=== PATIENT | female | born 1995 | race Caucasian/White ===

== ENCOUNTER → 2018-05-10 16:25 | Outpatient (CLI) | payer OTHER, SELFPAY ==
[2018-05-10 17:37] LABS: Add Manual Diff / Slide Review NO; Basophils Percent Auto 0.2 % (0-2); Eosinophils Percent Auto 0.5 % (2-4); Hematocrit 39.8 % (36-46); Hemoglobin 13.9 g/dL (12.0-16.0); Mean Corpuscular HGB Conc 34.9 % (30-36); Mean Corpuscular Volume 83.1 fL (80-100); Monocytes Percent Auto 5.2 % (3-14); Neutrophils Absolute Auto 8000 /uL (3000-5900); Neutrophils Percent Auto 71.1 % (50-75); Platelet Count 236 X10^3/uL (150-400); Red Blood Cell Count 4.79 X10^6/uL (4.0-5.2); Red Cell Distribution Width 13.6 % (11.6-14.8); White Blood Cell Count 11.3 X10^3/uL (4.5-11.0)
[2018-05-10 18:24] LABS: Appearance Urine UA CLEAR; Bilirubin Urine UA NEGATIVE (NEGATIVE); Color Urine UA YELLOW; Glucose Urine UA NEGATIVE (Normal); Ketones Urine UA NEGATIVE (NEGATIVE); Leukocyte Esterase Urine UA NEGATIVE (NEGATIVE); Nitrite Urine UA Negative (Negative); Occult Blood Urine UA NEGATIVE (Negative); Protein Urine UA TRACE (Negative); Specific Gravity Urine UA 1.025 (1.000-1.035); Urobilinogen Urine UA 0.2 E.U./dL (0.2)
[2018-05-10 19:56] LABS: HIV 1 and 2 Antibody NEGATIVE (NEGATIVE); Hep C Virus Ab w/Reflex Quant NEGATIVE s/c (NEGATIVE); Hepatitis B Surface Antigen NEGATIVE s/c (NEGATIVE); Rubella Antibody IgG 13.9 IU/mL (>15)
[2018-05-12 14:56] LABS: HSV 2 IGG AB < 0.90 index (< 0.90); HSV1IGG < 0.90 index (< 0.90)
[2018-05-12 15:08] LABS: Varicella IgG Antibody < 135.00 Index (< 135.00)
[2018-05-17 20:54] LABS: Urine Chlamydia NOT DETECTED; Urine N gonorrhoeae NOT DETECTED
[2018-05-18 20:30] LABS: Rapid Plasma Reagin NON-REACTIVE
== END ==
PROVIDERS: Visit Provider Specialist
DX: Z34.01 Encounter for supervision of normal first pregnancy, first trimester (principal); Z3A.01 Less than 8 weeks gestation of pregnancy
CPT/HCPCS: 36415; 80055; 81003; 86695; 86696; 86703; 86787; 86803; 86850; 86900; 86901; 87086; 87491; 87591

== ENCOUNTER → 2018-08-01 09:30 | Outpatient (CLI) | payer OTHER, SELFPAY ==
--- NOTE | 2018-08-01 09:30 | DI.US.S_ITS ---
PROCEDURE: US OB >= 14 WEEKS FETUS INDICATIONS: ANATOMY OUTSIDE/PRIOR DATING DATA: Last menstrual period (LMP): 03/15/18. LMP-based estimated date of delivery (SHANDRA): 12/20/18. First dating scan (date and location): 05/17/18. Estimated date of delivery (SHANDRA) from first dating scan: 12/22/18. TECHNIQUE: Real-time scanning was performed of the fetus, with image documentation and biometric measurements. Endovaginal scanning: No COMPARISON: [facility], , OB <= 14 WEEKS FETUS, 06/13/2018, 15:55. [facility], , OB >= 14 WEEKS FETUS, 05/25/2018, 15:53. FINDINGS: General: A single living intrauterine gestation is present. Presentation: Breech. Placenta: Placental position is anterior, without previa. Amniotic fluid index: 10.7 cm, normal range is 5-24 cm. heart rate: 141 beats per minute. Maternal cervical canal: 3.2 cm long. Normal lower limit is 2.5 cm. biometrics: Biparietal diameter: 19 weeks 5 days Head circumference: 19 weeks 4 days Abdominal circumference: 19 weeks 4 days Femur length: 18 weeks 5 days Estimated gestational age from initial scan: 19 weeks 4 days Composite gestational age from present scan: 19 weeks 3 days Estimated weight and percentile: 281 g; 27th percentile Measurement variability for biometric dating: +/- 7 days from 14 weeks to 15 weeks 6 days gestation, +/- 10 days from 16 weeks to 21 weeks 6 days gestation, +/- 2 weeks from 22 weeks to 27 weeks 6 days gestation, +/- 3 weeks for 28 weeks gestation or later. weight reference: 4500 g or EFW >90/95% is considered macrosomia or large for gestational age. EFW <10% is small for gestational age. EFW 5% or less is considered intra-uterine growth restriction. Anatomic survey: Neuro: Ventricles are non-dilated at less than 10 mm. Cisterna magna is normal at 3-11 mm. Cerebellum is normal in size and morphology. Nuchal skin fold: Normal at less than 6 mm between 14-21 weeks gestational age. Face: Nose and lips, facial profile are normal. Spine: No evidence for spina bifida. Heart: 4-chambered heart is present, with normal ventricular outflow tracts. Diaphragm: Diaphragm is intact. Stomach: Left-sided stomach is present. Kidneys: No hydronephrosis. Normal is less than 5 mm in 2nd trimester, less than 7 mm in 3rd trimester. Cord: 3-vessel cord has orthotopic insertion. Bladder: Normal in size. Extremities: All 4 extremities identified. IMPRESSION: 1. Single living IUP redemonstrated and interval growth is normal. 2. Normal anatomic survey. Dictated by: Sivakumar De Luna [facility] Interpreted: Lacy Anna MD on 08/01/2018 at 11:56 Approved by: Lacy Anna MD, PhD on 08/01/2018 at 14:51
== END ==
PROVIDERS: Visit Provider Family Medicine
DX: Z34.92 Encounter for supervision of normal pregnancy, unspecified, second trimester (principal); Z3A.19 19 weeks gestation of pregnancy
CPT/HCPCS: 76811

== ENCOUNTER → 2018-09-06 16:34 | Outpatient (CLI) | payer OTHER, SELFPAY ==
[2018-09-06 18:08] LABS: Hematocrit 34.3 % (36-46); Hemoglobin 11.6 g/dL (12.0-16.0)
[2018-09-06 18:30] LABS: GTT (PREG) 1 Hour PP 50gm Dose 142 mg/dL (76-139)
== END ==
PROVIDERS: PCP Physician Assistant Medical; Visit Provider Specialist
DX: Z34.92 Encounter for supervision of normal pregnancy, unspecified, second trimester (principal); Z3A.24 24 weeks gestation of pregnancy
CPT/HCPCS: 36415; 82950; 85014; 85018

== ENCOUNTER → 2018-09-20 07:47 | Outpatient (CLI) | payer OTHER, SELFPAY ==
[2018-09-20 08:48] LABS: Glucose Fasting Gestational 90 mg/dL (76-95)
[2018-09-20 09:50] LABS: Glucose 1 Hour Gest 149 mg/dL (76-180)
[2018-09-20 11:04] LABS: Glucose Tol Interp,Gestational INTERPRETATION
[2018-09-20 11:51] LABS: Glucose 2 Hour Gest 127 mg/dL (76-155)
[2018-09-20 12:12] LABS: Glucose 3 Hour Gest 134 mg/dL (76-140)
== END ==
PROVIDERS: PCP Physician Assistant Medical; Visit Provider Specialist
DX: O99.810 Abnormal glucose complicating pregnancy (principal); Z3A.26 26 weeks gestation of pregnancy
CPT/HCPCS: 36415; 82951; 82952

== ENCOUNTER 2018-11-12 11:32 | Outpatient (CLI) | payer OTHER, SELFPAY ==
[2018-11-12 12:46] LABS: Basophils Absolute Auto 0 /uL (0-100); Basophils Percent Auto 0.1 % (0-2); Eosinophils Absolute Auto 100 /uL (0-450); Eosinophils Percent Auto 0.8 % (2-4); Hematocrit 37.3 % (36-46); Hemoglobin 12.6 g/dL (12.0-16.0); Lymphocytes Absolute Auto 2100 /uL (1100-4500); Lymphocytes Percent Auto 22.9 % (25-40); Mean Corpuscular HGB Conc 33.7 % (30-36); Mean Corpuscular Hemoglobin 28.4 PG (26-34); Mean Corpuscular Volume 84.3 fL (80-100); Monocytes Absolute Auto 800 /uL (0-900); Monocytes Percent Auto 8.7 % (3-14); Neutrophils Absolute Auto 6100 /uL (1500-7000); Neutrophils Percent Auto 67.5 % (50-75); Platelet Count 221 X10^3/uL (150-400); Red Blood Cell Count 4.43 X10^6/uL (4.0-5.2); Red Cell Distribution Width 14.9 % (11.6-14.8)
[2018-11-12 12:47] LABS: Add Manual Diff / Slide Review SLIDE REVIEW
[2018-11-12 12:48] LABS: Appearance Urine UA SL CLOUDY; Bilirubin Urine UA NEGATIVE (NEGATIVE); Color Urine UA YELLOW; Glucose Urine UA NEGATIVE (Negative); Ketones Urine UA NEGATIVE (NEGATIVE); Leukocyte Esterase Urine UA 1+ (NEGATIVE); Nitrite Urine UA NEGATIVE (Negative); Occult Blood Urine UA NEGATIVE (Negative); Protein Urine UA NEGATIVE (Negative); RBC Urine None Seen (0-5/HPF); Urobilinogen Urine UA 0.2 E.U./dL (0.2)
[2018-11-12 12:54] LABS: Amorphous Sediment Urine 1+; Bacteria Urine Few (2-10); Culture Indicated Urine Specimen Cultured; Squamous Epithelial Cell Urine 1-5 /HPF; WBC Urine 5-10/HPF (0-5/HPF)
[2018-11-12 12:56] LABS: Alanine Aminotransferase 22 IU/L (9-52); Albumin 3.4 g/dL (3.5-5.0); Albumin Globulin Ratio 1.2 (1.0-2.8); Alkaline Phosphatase 153 U/L (38-126); Aspartate Aminotransferase 20 IU/L (14-36); Bilirubin Total 0.3 mg/dL (0.2-1.3); Bilirubin Unconjugated 0.2 mg/dL (0.0-1.1); Blood Urea Nitrogen 4 mg/dL (7-17); Calcium 10.5 mg/dL (8.4-10.2); Carbon Dioxide 27 mmol/L (22-32); Chloride 100 mmol/L (98-107); Estimated Glomerular Filt Rate > 60.0 mL/min (>60); Globulin 2.9 g/dL (1.7-4.1); Glucose 94 mg/dL (70-100); HEMOLYSIS < 15 (0-50); Potassium 3.9 mmol/L (3.4-5.1); Sodium 134 mmol/L (137-145); Total Protein 6.3 g/dL (6.3-8.2); Uric Acid 4.7 mg/dL (2.5-6.2)
[2018-11-12 13:09] LABS: RBC Morphology Normal Morphology
--- NOTE | 2018-11-12 13:25 | P.TNLD_ITS ---
Visit Information Visit Information Date of evaluation: 11/12/18 Primary OB Provider: Monica Almonte Reason for Evaluation: Yes non-stress test Comments/Additional reasons for admission: Patient complaining of decreased movement and a headache Vital Signs Vital Signs: Blood pressure 132/79, repeat 130/76, pulse 100, temperature 98.8? Review of Systems Review of Systems Patient complains of pain above her left eye. No nausea. No scotomata. No change in her edema although a little bit more swelling in her hands. Patient is concerned because she had not felt the baby move. No leakage of fluid. No contractions. All systems reviewed & are unremarkable except as noted in HPI and below Exam Vital Signs (past 8 hours): Blood pressure 132/79 pulse of 100, temperature 98.8? Narrative Exam Narrative: Abdomen is soft nontender. She has trace edema. DTRs are normal. Objective Labs Result Diagrams: 11/12/18 12:35 11/12/18 12:35 Labs: Laboratory Results - last 24 hr 11/12/18 11/12/18 11/12/18 12:26 12:35 12:35 WBC 9.0 RBC 4.43 Hgb 12.6 Hct 37.3 MCV 84.3 MCH 28.4 MCHC 33.7 RDW 14.9 H Plt Count 221 Neut % (Auto) 67.5 Lymph % (Auto) 22.9 L [place] % (Auto) 8.7 Eos % (Auto) 0.8 L Baso % (Auto) 0.1 Neut # (Auto) 6100 Lymph # (Auto) 2100 [place] # (Auto) 800 Eos # (Auto) 100 Baso # (Auto) 0 RBC Morphology Normal morphology Sodium 134 L Potassium 3.9 Chloride 100 Carbon Dioxide 27 BUN 4 L Creatinine 0.50 L Estimated GFR > 60.0 BUN/Creatinine Ratio 8.0 Glucose 94 Uric Acid 4.7 Calcium 10.5 H Total Bilirubin 0.3 Conjugated Bilirubin 0.0 Unconjugated Bilirubin 0.2 AST 20 ALT 22 Alkaline Phosphatase 153 H Total Protein 6.3 Albumin 3.4 L Globulin 2.9 Albumin/Globulin Ratio 1.2 Urine Color Yellow Urine Appearance Sl cloudy Urine pH 7.0 Ur Specific [place] 1.010 Urine Protein Negative Urine Glucose (UA) Negative Urine Ketones Negative Urine Occult Blood Negative Urine Nitrate Negative Urine Bilirubin Negative Urine Urobilinogen 0.2 Ur Leukocyte Esterase 1+ H Urine RBC None seen Urine WBC 5-10/hpf H Ur Squamous Epith Cells 1-5 /hpf Amorphous Sediment 1+ Urine Bacteria Few (2-10) H Ur Culture Indicated? Specimen cultured Evaluation Evaluation Baseline heart rate: 130 Variability: Moderate (11-25) monitor accelerations: Present monitor decelerations: Absent Contraction Frequency (minutes): 0 Category of Tracing: I Laboratory results: Laboratory Tests 11/12/18 11/12/18 11/12/18 12:26 12:35 12:35 WBC 9.0 RBC 4.43 Hgb 12.6 Hct 37.3 MCV 84.3 MCH 28.4 MCHC 33.7 RDW 14.9 H Plt Count 221 Neut % (Auto) 67.5 Lymph % (Auto) 22.9 L [place] % (Auto) 8.7 Eos % (Auto) 0.8 L Baso % (Auto) 0.1 Neut # (Auto) 6100 Lymph # (Auto) 2100 [place] # (Auto) 800 Eos # (Auto) 100 Baso # (Auto) 0 RBC Morphology Normal morphology Sodium 134 L Potassium 3.9 Chloride 100 Carbon Dioxide 27 BUN 4 L Creatinine 0.50 L Estimated GFR > 60.0 BUN/Creatinine Ratio 8.0 Glucose 94 Uric Acid 4.7 Calcium 10.5 H Total Bilirubin 0.3 Conjugated Bilirubin 0.0 Unconjugated Bilirubin 0.2 AST 20 ALT 22 Alkaline Phosphatase 153 H Total Protein 6.3 Albumin 3.4 L Globulin 2.9 Albumin/Globulin Ratio 1.2 Urine Color Yellow Urine Appearance Sl cloudy Urine pH 7.0 Ur Specific [place] 1.010 Urine Protein Negative Urine Glucose (UA) Negative Urine Ketones Negative Urine Occult Blood Negative Urine Nitrate Negative Urine Bilirubin Negative Urine Urobilinogen 0.2 Ur Leukocyte Esterase 1+ H Urine RBC None seen Urine WBC 5-10/hpf H Ur Squamous Epith Cells 1-5 /hpf Amorphous Sediment 1+ Urine Bacteria Few (2-10) H Ur Culture Indicated? Specimen cultured Diagnosis, Plan/Disposition Final Diagnosis (1) 34 weeks gestation of : Current Visit: Yes Status: Acute (2) Hypertension affecting in third trimester: Current Visit: Yes Status: Acute (3) Decreased movement: Current Visit: Yes Status: Acute Plan/Disposition Plan: [facility] labs were normal. Patient is now feeling the baby move. Patient has follow-up appointment scheduled. She is to call if there is any changes or worsening of her symptoms. OB Disposition: home
== END 2018-11-12 13:30 | disposition home or self-care (01) ==
LOC: LABOR 12:23 → OB 11-13 14:17
PROVIDERS: PCP Physician Assistant Medical; Visit Provider Specialist
DX: O36.8130 Decreased fetal movements, third trimester, not applicable or unspecified (principal); O16.3 Unspecified maternal hypertension, third trimester; R51 Headache; Z3A.34 34 weeks gestation of pregnancy
CPT/HCPCS: 36415; 59025; 80053; 80076; 81001; 84550; 85025; 87086; G0378; G0379

== ENCOUNTER → 2018-11-29 09:29 | Outpatient (CLI) | payer OTHER, SELFPAY ==
[2018-11-29 14:21] LABS: Strep Grp B PCR NEG for Grp B Strep
== END ==
PROVIDERS: PCP Physician Assistant Medical; Visit Provider Specialist
DX: Z34.03 Encounter for supervision of normal first pregnancy, third trimester (principal); Z3A.37 37 weeks gestation of pregnancy
CPT/HCPCS: 87653

== ENCOUNTER 2018-12-05 09:53 | Observation (INO) | payer OTHER, SELFPAY ==
[2018-12-05 10:40] LABS: Add Manual Diff / Slide Review NO; Basophils Absolute Auto 0 /uL (0-100); Basophils Percent Auto 0.2 % (0-2); Eosinophils Absolute Auto 100 /uL (0-450); Eosinophils Percent Auto 1.4 % (2-4); Hematocrit 35.6 % (36-46); Hemoglobin 12.4 g/dL (12.0-16.0); Lymphocytes Absolute Auto 1900 /uL (1100-4500); Lymphocytes Percent Auto 22.5 % (25-40); Mean Corpuscular HGB Conc 34.8 % (30-36); Mean Corpuscular Hemoglobin 28.7 PG (26-34); Mean Corpuscular Volume 82.6 fL (80-100); Monocytes Absolute Auto 700 /uL (0-900); Monocytes Percent Auto 8.3 % (3-14); Neutrophils Absolute Auto 5800 /uL (1500-7000); Neutrophils Percent Auto 67.6 % (50-75); Platelet Count 198 X10^3/uL (150-400); Red Blood Cell Count 4.31 X10^6/uL (4.0-5.2); Red Cell Distribution Width 14.3 % (11.6-14.8); White Blood Cell Count 8.6 X10^3/uL (4.5-11.0)
[2018-12-05 10:50] LABS: Aspartate Aminotransferase 20 IU/L (14-36); Blood Urea Nitrogen 4 mg/dL (7-17); Estimated Glomerular Filt Rate > 60.0 mL/min (>60); Uric Acid 6.1 mg/dL (2.5-6.2)
--- NOTE | 2018-12-05 12:18 | PM.OBTRLD ---
Visit Information Visit Information Date of evaluation: 12/05/18 Primary OB Provider: Monica Almonte Reason for Evaluation: Yes rule out labor Comments/Additional reasons for admission: Hypertension, edema, 1+ proteinuria, 37w6d first Vital Signs Vital Signs: Blood pressure of 138/82 followed by 112/ 92 Exam Narrative Exam Narrative: Fern test was negative for rupture of membranes. Patient with marked edema of abdomen and extremities. DTRs are normal. Ultrasound normal amniotic fluid with grade 3 changes of the placenta. Vertex spine right, baby looking left. Objective Labs Result Diagrams: 12/05/18 10:30 12/05/18 10:30 Labs: Laboratory Results - last 24 hr 12/05/18 12/05/18 10:30 10:30 WBC 8.6 RBC 4.31 Hgb 12.4 Hct 35.6 L MCV 82.6 MCH 28.7 MCHC 34.8 RDW 14.3 Plt Count 198 Neut % (Auto) 67.6 Lymph % (Auto) 22.5 L [place] % (Auto) 8.3 Eos % (Auto) 1.4 L Baso % (Auto) 0.2 Neut # (Auto) 5800 Lymph # (Auto) 1900 [place] # (Auto) 700 Eos # (Auto) 100 Baso # (Auto) 0 BUN 4 L Creatinine 0.40 L Estimated GFR > 60.0 BUN/Creatinine Ratio 10.0 Uric Acid 6.1 AST 20 Evaluation Evaluation Baseline heart rate: 130 Variability: Moderate (11-25) monitor accelerations: Present monitor decelerations: Absent Contraction Frequency (minutes): 0 Category of Tracing: I Cervical dilation (cm): 6 Cervical effacement (%): 100 station: -2 Laboratory results: Laboratory Tests 12/05/18 12/05/18 10:30 10:30 WBC 8.6 RBC 4.31 Hgb 12.4 Hct 35.6 L MCV 82.6 MCH 28.7 MCHC 34.8 RDW 14.3 Plt Count 198 Neut % (Auto) 67.6 Lymph % (Auto) 22.5 L [place] % (Auto) 8.3 Eos % (Auto) 1.4 L Baso % (Auto) 0.2 Neut # (Auto) 5800 Lymph # (Auto) 1900 [place] # (Auto) 700 Eos # (Auto) 100 Baso # (Auto) 0 BUN 4 L Creatinine 0.40 L Estimated GFR > 60.0 BUN/Creatinine Ratio 10.0 Uric Acid 6.1 AST 20 Diagnosis, Plan/Disposition Final Diagnosis (1) Hypertension affecting in third trimester: Current Visit: No Status: Acute Problem details: Patient will return tomorrow for AROM possible Pitocin induction if she does not return tonight in labor (2) 37 weeks gestation of : Current Visit: No Status: Acute
== END 2018-12-05 12:15 | disposition home or self-care (01) ==
PROVIDERS: Admitting Provider Specialist; PCP Physician Assistant Medical; Visit Provider Specialist
DX: O16.3 Unspecified maternal hypertension, third trimester (principal); Z3A.37 37 weeks gestation of pregnancy
CPT/HCPCS: 36415; 59025; 59050; 76815; 84450; 84550; 85025; G0378; G0379

== ENCOUNTER 2018-12-06 07:02 | Inpatient (IN) | payer OTHER, SELFPAY ==
--- NOTE | 2018-12-06 07:40 | PM.OBHP.1 ---
OB HPI Date/Time Date of admission: 12/06/18 Date Patient Seen: 12/06/18 Time Patient Seen: 07:40 History of Present Condition Chief complaint: OBS : 2 Para: 0 Estimated Date of Delivery: 12/20/18 Estimated Gestational Age (weeks): 38 Narrative: Abbey Hernandez is a 23 year old female at 38 weeks with gestational hypertension, advanced cervical dilation Indications Indication for induction OB: medical complication (mild preeclampsia) History of Present care: good care, initiated at week # (9), number of visits (13) and pounds weight gain (47) Dating criteria: LMP confirmed by 1st trimester US Ultrasounds: normal mid trimester US Obstetrical complications: preeclampsia Medical complications: none Preadmission Labs Blood type: O (+) positive -: Antibody screen: negative, GBS status: negative, HBsAG: negative, HIV: negative, HSV 1: negative, HSV 2: negative and RPR/VDLR: negative -: Chlamydia screen: not detected and Gonorrhea screen: not detected -: Rubella: not immune and Varicella: immune HCAB: negative 1 hr GTT: 142 3 hr GTT: 1 hr (149), 2 hr (127) and 3 hr (134) Fasting blood glucose: 90 Evaluation Evaluation Baseline heart rate: 125 Variability: Moderate (11-25) monitor accelerations: Present monitor decelerations: Absent Contraction Frequency (minutes): 0 Cervical dilation (cm): 6 Cervical effacement (%): 95 station: -2 [facility] Medical History (Updated 12/06/18 @ 07:46 by Monica Almonte MD) PCOS (polycystic ovarian syndrome) (Acute) Migraines (Chronic) Depression (Inactive) Social History Smoking Status: Never smoker Social History Smoking Status: Never smoker Meds Home Medications Medication Instructions Recorded Confirmed Type inulin 2 gram chewable tablet 2 gram PO DAILY tab 05/10/18 12/06/18 History lactobacillus combination no.8 3 3,000 mmu cells PO DAILY 05/10/18 12/06/18 History billion cell capsule 1 tab PO DAILY 05/10/18 12/06/18 History vitamin,calcium,hwipclqv-ixnv-kqclp acid tablet Allergies Allergy/AdvReac Type Severity Reaction Status Date / Time No Known Drug Allergies Allergy Unverified 05/10/18 16:47 Review of Systems Review of Systems Patient denies headaches today or scotomata. No right upper quadrant pain. No leakage of fluid. No regular contractions. Good movement. All systems reviewed & are unremarkable except as noted in HPI and below Exam Vital Signs (past 8 hours): Blood pressure 154/98, pulse of 94, temperature 36.3? Narrative Exam Narrative: HEENT exam within normal limits. Lungs are clear to auscultation and percussion. Heart is regular rate and rhythm no S3-S4 or murmurs. Abdomen is gravid. Infant is vertex. Patient has significant edema of her extremities and even her abdomen. DTRs are normal. Objective Labs Result Diagrams: 12/06/18 07:40 Assessment and Plan Assessment and Plan Assessment and Plan narrative: Patient is 38 weeks with the increasing blood pressure and edema with some gradual increase in uric acid and proteinuria suggestive of early preeclampsia. Patient has a significantly dilated cervix at 6 cm so she was brought in for AROM induction. Patient will be monitor for worsening preeclampsia. Anticipate vaginal delivery
--- NOTE | 2018-12-06 07:46 | P.HPOB_ITS ---
OB HPI Date/Time Date of admission: 12/06/18 Date Patient Seen: 12/06/18 Time Patient Seen: 07:40 History of Present Condition Chief complaint: OBS : 2 Para: 0 Estimated Date of Delivery: 12/20/18 Estimated Gestational Age (weeks): 38 Narrative: Abbey Hernandez is a 23 year old female at 38 weeks with gestational hypertension, advanced cervical dilation Indications Indication for induction OB: medical complication (mild preeclampsia) History of Present care: good care, initiated at week # (9), number of visits (13) and pounds weight gain (47) Dating criteria: LMP confirmed by 1st trimester US Ultrasounds: normal mid trimester US Obstetrical complications: preeclampsia Medical complications: none Preadmission Labs Blood type: O (+) positive -: Antibody screen: negative, GBS status: negative, HBsAG: negative, HIV: negative, HSV 1: negative, HSV 2: negative and RPR/VDLR: negative -: Chlamydia screen: not detected and Gonorrhea screen: not detected -: Rubella: not immune and Varicella: immune HCAB: negative 1 hr GTT: 142 3 hr GTT: 1 hr (149), 2 hr (127) and 3 hr (134) Fasting blood glucose: 90 Evaluation Evaluation Baseline heart rate: 125 Variability: Moderate (11-25) monitor accelerations: Present monitor decelerations: Absent Contraction Frequency (minutes): 0 Cervical dilation (cm): 6 Cervical effacement (%): 95 station: -2 [facility] Medical History (Updated 12/06/18 @ 07:46 by Moncia Almonte MD) PCOS (polycystic ovarian syndrome) (Acute) Migraines (Chronic) Depression (Inactive) Social History Smoking Status: Never smoker Social History Smoking Status: Never smoker Meds Home Medications Medication Instructions Recorded Confirmed Type inulin 2 gram chewable tablet 2 gram PO DAILY tab 05/10/18 12/06/18 History lactobacillus combination no.8 3 3,000 mmu cells PO DAILY 05/10/18 12/06/18 History billion cell capsule 1 tab PO DAILY 05/10/18 12/06/18 History vitamin,calcium,xzrbjran-rwju-dtdth acid tablet Allergies Allergy/AdvReac Type Severity Reaction Status Date / Time No Known Drug Allergies Allergy Unverified 05/10/18 16:47 Review of Systems Review of Systems Patient denies headaches today or scotomata. No right upper quadrant pain. No leakage of fluid. No regular contractions. Good movement. All systems reviewed & are unremarkable except as noted in HPI and below Exam Vital Signs (past 8 hours): Blood pressure 154/98, pulse of 94, temperature 36.3? Narrative Exam Narrative: HEENT exam within normal limits. Lungs are clear to auscul tation and percussion. Heart is regular rate and rhythm no S3-S4 or murmurs. Abdomen is gravid. is vertex. Patient has significant edema of her extremities and even her abdomen. DTRs are normal. Objective Labs Result Diagrams: 12/06/18 07:40 Assessment and Plan Assessment and Plan Assessment and Plan narrative: Patient is 38 weeks with the increasing blood pressure and edema with some gradual increase in uric acid and proteinuria suggestive of early preeclampsia. Patient has a significantly dilated cervix at 6 cm so she was brought in for AROM induction. Patient will be monitor for worsening preeclampsia. Anticipate vaginal delivery
[2018-12-06] MEDS: LACTATED RINGERS 1,000 ML 100 ML IV (08:48)
[2018-12-06] MEDS: OXYTOCIN PREMIX 30 UNIT/500 ML PLAST..BAG IV (08:48)
[2018-12-06 09:18] LABS: Add Manual Diff / Slide Review NO; Basophils Absolute Auto 0 /uL (0-100); Basophils Percent Auto 0.3 % (0-2); Eosinophils Absolute Auto 100 /uL (0-450); Eosinophils Percent Auto 1.2 % (2-4); Hematocrit 36.1 % (36-46); Hemoglobin 12.4 g/dL (12.0-16.0); Lymphocytes Absolute Auto 2100 /uL (1100-4500); Lymphocytes Percent Auto 18.6 % (25-40); Mean Corpuscular HGB Conc 34.3 % (30-36); Mean Corpuscular Hemoglobin 28.6 PG (26-34); Mean Corpuscular Volume 83.2 fL (80-100); Monocytes Absolute Auto 800 /uL (0-900); Monocytes Percent Auto 7.4 % (3-14); Neutrophils Absolute Auto 8300 /uL (1500-7000); Neutrophils Percent Auto 72.5 % (50-75); Platelet Count 211 X10^3/uL (150-400); Red Blood Cell Count 4.34 X10^6/uL (4.0-5.2); Red Cell Distribution Width 14.2 % (11.6-14.8); White Blood Cell Count 11.4 X10^3/uL (4.5-11.0)
[2018-12-06 10:14] VITALS: BP 138/88
--- NOTE | 2018-12-06 17:28 | P.PCNOB_ITS ---
Events: Pre-Eclampsia Delivery date: 12/06/18 Intrapartal events: Ineffective Pushing Induction method: AROM Delivery augmentation: pitocin Delivery monitor: external FHT and external uterine Route of delivery: vacuum extraction Indication for instrumentation: maternal exhaustion L&D Laceration Description: Perineal - 2nd Degree Delivery repair: chromic (3-0) Estimated blood loss (mL): 250 Anesthesia type: Epidural Narrative: Patient arrived on Labor and delivery for AROM induction for advanced cervical dilation and concerns for mild preeclampsia. After AROM the patient progressed and received an epidural catheter for pain control. She had a small amount of Pitocin max 6 milliunits to assist in contractions. heart tones category 1 to category 2 throughout labor. She had a couple episodes of prolonged decelerations that responded to position change, O2, fluid bolus. After 2 hours of pushing the patient had made minimal progress and heart tone reactivity was decreasing so decision was made to assist with vacuum extraction. The vacuum was placed for a total of 3 contractions with delivery of the 's head. The shoulders delivered after mild corkscrew maneuver and the placed on maternal abdomen. After minute the cord was clamped because of concerns that the may be might need resuscitation but then the baby responded immediately so the cord was cut and the infant left on maternal abdomen. Cord bloods were obtained. The placenta delivered spontaneously, intact, with 3 vessels. There were no cervical tears. A second-degree vaginal extending to second-degree perineal tear was repaired with 3 0 chromic suture in the usual 2 layer fashion. Both infant and mother doing well. [place] Baby 1: gender: Male Presentation: vertex position: Right Occiput Anterior Placenta delivery description: Spontaneous cord vessel description: 3 Vessels score (1 min): 7 score (5 min): 9 Plan for aftercare: Routine care
[2018-12-06 17:50] VITALS: TEMP 37.1
[2018-12-06] MEDS: IBUPROFEN 600 MG TABLET PO (17:50)
[2018-12-06] MEDS: DERMOPLAST SPRAY 20% 60 ML 1 SPRAY TOP (17:50)
[2018-12-07] MEDS: IBUPROFEN 600 MG TABLET PO ×4 (00:23→17:36)
[2018-12-07 05:22] LABS: Add Manual Diff / Slide Review NO; Basophils Absolute Auto 0 /uL (0-100); Basophils Percent Auto 0.3 % (0-2); Eosinophils Absolute Auto 100 /uL (0-450); Eosinophils Percent Auto 0.9 % (2-4); Hematocrit 30.9 % (36-46); Hemoglobin 10.3 g/dL (12.0-16.0); Lymphocytes Absolute Auto 2500 /uL (1100-4500); Lymphocytes Percent Auto 18.3 % (25-40); Mean Corpuscular HGB Conc 33.3 % (30-36); Mean Corpuscular Hemoglobin 27.8 PG (26-34); Mean Corpuscular Volume 83.4 fL (80-100); Monocytes Absolute Auto 1100 /uL (0-900); Monocytes Percent Auto 7.8 % (3-14); Neutrophils Absolute Auto 10000 /uL (1500-7000); Neutrophils Percent Auto 72.7 % (50-75); Platelet Count 174 X10^3/uL (150-400); Red Blood Cell Count 3.71 X10^6/uL (4.0-5.2); Red Cell Distribution Width 14.2 % (11.6-14.8); White Blood Cell Count 13.8 X10^3/uL (4.5-11.0)
[2018-12-07 05:28] LABS: Alanine Aminotransferase 22 IU/L (9-52)
[2018-12-07] MEDS: DOCUSATE 250 MG CAPSULE PO (09:18)
[2018-12-07] MEDS: FERROUS GLUCONATE 324 MG TABLET PO (09:18)
--- NOTE | 2018-12-07 11:17 | P.PNOB_ITS ---
Subjective - OB Patient comments: no complaints baby status: doing well [place] feeding status: exclusively breast feeding Narrative: day 1. Patient complains of a little bit more pain than yesterday but pain medicine is working for her. She denies any significant vaginal bleeding. No headaches, scotomata, or epigastric pain. She is having some issues with breast-feeding. She is urinating and ambulating well. No nausea. Date Patient Seen: 12/07/18 Time Patient Seen: 11:11 Exam Vital Signs (past 8 hours): Blood pressure 124/83, pulse 102, temperature 98.1? Narrative Exam Narrative: Abdomen is soft, nontender. Uterus is firm, at U, nontender. Mmild lochia. Extremities continued +1 edema with no tenderness. Objective Labs Result Diagrams: 12/07/18 04:55 Labs: Laboratory Results - last 24 hr 12/07/18 12/07/18 04:55 04:55 WBC 13.8 H RBC 3.71 L Hgb 10.3 L Hct 30.9 L MCV 83.4 MCH 27.8 MCHC 33.3 RDW 14.2 Plt Count 174 Neut % (Auto) 72.7 Lymph % (Auto) 18.3 L [place] % (Auto) 7.8 Eos % (Auto) 0.9 L Baso % (Auto) 0.3 Neut # (Auto) 72551 H Lymph # (Auto) 2500 [place] # (Auto) 1100 H Eos # (Auto) 100 Baso # (Auto) 0 ALT 22 Assessment & Plan (1) Vaginal delivery: Status: Acute Current Visit: Yes (2) Hypertension affecting , delivered, current hospitalization: Problem details: Monitor for signs or symptoms of worsening preeclampsia Status: Acute Current Visit: Yes Time Spent With Patient Total time spent is greater than 50% in coordination of care (as documented) at patient's floor/unit and/or counseling patient: less than 15 minutes
[2018-12-07 11:50] VITALS: TEMP 36.3
[2018-12-07] MEDS: ACETAMINOPHEN 325 MG TABLET 650 MG PO ×2 (11:50→17:37)
[2018-12-07] MEDS: LANOLIN OINT 7 GM 1 APPLIC TOP (11:51)
[2018-12-08] MEDS: FERROUS GLUCONATE 324 MG TABLET PO (08:12)
[2018-12-08] MEDS: IBUPROFEN 600 MG TABLET PO (08:12)
[2018-12-08] MEDS: DOCUSATE 250 MG CAPSULE PO (08:12)
--- NOTE | 2018-12-08 11:14 | PM.OBDS.1 ---
Discharge Providers Date of admission: 12/06/18 07:02 Discharge Date: 12/08/18 Primary care physician: Shweta Tong PA-C Consults: 12/06/18 08:34 Consult to Anesthesiology Urgent Comment: Consulting Provider: Anesthesiologist Reason for consultation: Epidural Has provider been notified: No 12/06/18 17:43 Consult to Animal Cruelty Investigator Routine Comment: Discharge provider: Monica Almonte MD Summary Date Patient Seen: 12/08/18 Time Patient Seen: 11:14 Procedures: Epidural catheter, vacuum assisted vaginal delivery, second-degree vaginal and vulvar repair Hospital Course: Patient was admitted for AROM induction for mild preeclampsia, advanced cervical dilation. She received an epidural catheter for pain control. She denies any headaches, scotoma, epigastric pain. She is urinating well and ambulatory. Her pain is under control. Blood pressure 133/94, pulse 98, temperature 97.6? Abdomen is soft, nontender. Uterus is firm, at U, nontender. Extremities with +1 edema nontender. Patient is O-positive and rubella nonimmune so will need rubella vaccine prior to discharge. Peripartum Data Infant Delivery Method: Assisted Delivery (Vacuum assisted vaginal delivery) Laceration description: Perineal - 2nd Degree Procedures: Vacuum assisted vaginal delivery, epidural catheter, repair of second-degree tear complications: none [place] 1: Gender: Male Discharge Diagnosis (1) Vaginal delivery: Status: Acute (2) Hypertension affecting , delivered, current hospitalization: Status: Acute Problem Details: Monitor for signs or symptoms of worsening preeclampsia (3) Acute on chronic blood loss anemia: Status: Acute Status at Discharge Cognitive/behavioral status at discharge: oriented Functional status at discharge: independent ambulation Overall status at discharge: patient is progressing back to baseline Time Spent with Patient Total time spent providing and/or coordinating discharge services: Less than 30 minutes Objective Labs Result Diagrams: 12/07/18 04:55 Discharge Plan Discharge Plan Patient Disposition: Home Discharge Med Rec/Prescriptions Prescriptions: New ibuprofen 600 mg Tablet 600 mg PO Q6HR PRN (Reason: Pain, Mild (1-3)) Qty: 30 RF: 0 docusate sodium 250 mg Capsule 250 mg PO DAILY Qty: 20 RF: 0 ferrous gluconate 324 mg (38 mg iron) Tablet 324 mg PO DAILY Qty: 30 RF: 0 Follow up/Referrals: Monica Almonte MD [Physician] - 3-5 Days (BP check ok to arrange at same general time baby f/u aappointment) Shweta Tong PA-C [Primary Care Provider] - Provider Discharge Instructions Diet: Regular Activity: nothing in vagina for 4 weeks Skin/Wound/Dressing Care Report to your healthcare provider any signs of infection, such as:: chills, fever and increased pain Discharge Data Primary Care Provider: Shweta Tong Attending Provider: Monica Almonte Admit Date/Time: 12/06/18 07:02
[2018-12-08 12:10] VITALS: BP 138/88; PULSE 80; TEMP 36.3
[2018-12-08] MEDS: MEASLES,MUMPS,RUBELLA VACC/PF 0.5 ML VIAL SUBCUT (13:03)
== END 2018-12-08 13:00 | disposition home or self-care (01) | DRG 806 ==
PROVIDERS: Admitting Provider Specialist; PCP Physician Assistant Medical; Visit Provider Specialist
DX: O14.04 Mild to moderate pre-eclampsia, complicating childbirth (principal); D62 Acute posthemorrhagic anemia; Z37.0 Single live birth; Z3A.38 38 weeks gestation of pregnancy; O75.81 Maternal exhaustion complicating labor and delivery; O70.1 Second degree perineal laceration during delivery; O76 Abnormality in fetal heart rate and rhythm complicating labor and delivery; D64.9 Anemia, unspecified; O99.02 Anemia complicating childbirth
CPT/HCPCS: 36415; 59050; 59400; 84460; 85025; 86850; 86900; 86901; G0379; J2590

== ENCOUNTER → 2025-03-08 10:01 | Outpatient (CLI) | payer OTHER, SELFPAY ==
[2025-03-08 10:52] LABS: Add Manual Diff / Slide Review NO; Hematocrit 40.9 % (36-46); Hemoglobin 14.2 g/dL (12.0-16.0); Lymphocytes Absolute Auto 3000 /uL (1100-4500); Mean Corpuscular HGB Conc 34.7 % (30-36); Mean Corpuscular Hemoglobin 28.9 PG (26-34); Mean Corpuscular Volume 83.5 fL (80-100); Platelet Count 275 X10^3/uL (150-400)
[2025-03-08 11:02] LABS: Hemoglobin A1C% w Est Avg Glu 5.4 % (4.0-6.0)
[2025-03-08 11:08] LABS: Alanine Aminotransferase 28 IU/L (<35); Albumin 4.6 g/dL (3.5-5.0); Albumin Globulin Ratio 1.6 (1.0-2.8); Alkaline Phosphatase 72 U/L (38-126); Blood Urea Nitrogen 14 mg/dL (7-17); Calcium 9.4 mg/dL (8.4-10.2); Carbon Dioxide 29 mmol/L (22-32); Chloride 100 mmol/L (98-107); Cholesterol 198 mg/dL (140-199); Estimated Glomerular Filt Rate > 60 mL/min (>60); Globulin 2.8 g/dL (1.7-4.1); Glucose 95 mg/dL (70-99); HDL Cholesterol 34 mg/dL (40-60); HEMOLYSIS < 15 (0-50); Potassium 4.5 mmol/L (3.4-5.1); Sodium 137 mmol/L (137-145); Total Protein 7.4 g/dL (6.3-8.2); Triglycerides 188 mg/dL (35-150)
[2025-03-08 11:40] LABS: TSH w/ Reflex to FT4 2.48 uIU/mL (0.47-4.68)
== END ==
PROVIDERS: PCP Family Medicine; Referring Provider Family Medicine; Visit Provider Family Medicine
DX: E28.2 Polycystic ovarian syndrome (principal); Z83.3 Family history of diabetes mellitus
CPT/HCPCS: 36415; 80053; 80061; 83036; 84443; 85025

== ENCOUNTER → 2025-05-26 17:03 | Outpatient (CLI) | payer OTHER, SELFPAY | PROVIDERS: PCP Family Medicine; Visit Provider Family Medicine | DX: Z11.3 Encounter for screening for infections with a predominantly sexual mode of transmission (principal) | CPT/HCPCS: 87491; 87563; 87591 ==